=== PATIENT | female | born 2000 | race Two or more races ===

== ENCOUNTER 2020-11-30 11:20 | Observation (INO) | payer MEDICAID ==
[~2020-11-30] VITALS: Ht 167.6 cm; Wt 83.9 kg
== END 2020-11-30 13:58 | disposition home or self-care (01) ==
LOC: LDRP 11:20
PROVIDERS: ADMIT Obstetrics & Gynecology; ATTEND Obstetrics & Gynecology
DX: O26.893 Other specified pregnancy related conditions, third trimester (principal); R10.30 Lower abdominal pain, unspecified; O42.92 Full-term premature rupture of membranes, unspecified as to length of time between rupture and onset of labor; Z3A.38 38 weeks gestation of pregnancy
CPT/HCPCS: 59025; 81002; 84112; 94760; G0378; Q0114

== ENCOUNTER 2020-12-12 07:13 | Inpatient (IN) | payer MEDICAID ==
[~2020-12-12] VITALS: Ht 167.6 cm; Wt 96.2 kg
[2020-12-12] MEDS ORDERED: PHISODERM TOP SOLN 240ML BTL TOP PRN (07:30)
[2020-12-12] MEDS ORDERED: BUTORPHANOL TARTRATE 2 MG/1 ML VIAL IV PRN (07:30)
[2020-12-12] MEDS ORDERED: LACTATED RINGER'S 1,000 ML IV SCH (07:30)
[2020-12-12] MEDS ORDERED: PROMETHAZINE HCL 25 MG/ML 1ML IV PRN (07:30)
[2020-12-12] MEDS ORDERED: WITCH HAZEL-GLYCERIN PAD TOP PRN (07:30)
[2020-12-12] MEDS ORDERED: DERMOPLAST 60ML BOTTLE TOP PRN (07:30)
[2020-12-12] MEDS ORDERED: LIDOCAINE 2%HCL (LOCAL ANESTH.) INJ 20ML MDV IJ PRN (07:30)
[2020-12-12 08:13] LABS: Basophils # (auto) 0 10 ^3/uL (0-0.2); Basophils % (auto) 0.4 % (0.0-2.0); Eosinophils # (auto) 0.1 10 ^3/uL (0-0.8); Eosinophils % (auto) 0.8 % (0.0-7.0); Hematocrit 36.7 % (36.0-46.0); Hemoglobin 12.6 g/dL (12.2-16.2); Lymphocytes # (auto) 2.1 10 ^3/uL (0.4-5.4); Lymphocytes % (auto) 27.4 % (10.0-50.0); Mean Corpuscular Hemoglobin 29.8 pg (28.0-32.0); Mean Corpuscular Hgb Conc. 34.5 g/dL (32.0-36.0); Mean Corpuscular Volume 86.5 fL (80.0-100.0); Monocytes # (auto) 0.6 10 ^3/uL (0-1.3); Neutrophils # (auto) 4.9 10 ^3/uL (1.6-8.6); Neutrophils % (auto) 63.4 % (37.0-80.0); Nucleated Red Blood Cells % 0.1 %; Red Blood Cells 4.24 10^6/uL (4.0-5.20); Red Cell Distribution Width 14.5 % (11.8-14.3); White Blood Cell 7.7 10^3/uL (4.4-10.8)
[2020-12-12 08:19] LABS: Urine Amorphous Crystal MOD /hpf (None Seen); Urine Bacteria FEW /hpf (None Seen); Urine Blood 1+ /uL (Negative); Urine Hyaline Cast FEW /lpf (0 - 2); Urine Mucus FEW (None Seen); Urine Specific Gravity 1.022 (1.001-1.035); Urine WBC 9 /hpf (0 - 5)
[2020-12-12 08:26] LABS: INR 0.91 (0.9-1.15); Partial Thromboplastin Time 26.3 sec (23.0-31.2)
[2020-12-12 08:41] LABS: Albumin 2.5 g/dL (3.4-5.0); Calcium 8.7 mg/dL (8.5-10.1); Potassium 3.9 mmol/L (3.5-5.1)
[2020-12-12 08:43] LABS: Amphetamine Screen, Urine NEGATIVE (NEGATIVE); Barbiturate Scree,Urine NEGATIVE (NEGATIVE); Benzodiazephine Screen, Urine NEGATIVE (NEGATIVE); Cannabinoid Screen, Urine NEGATIVE (NEGATIVE); Cocaine Screen, Urine NEGATIVE (NEGATIVE); Opiate Scree,Urine NEGATIVE (NEGATIVE); Phencyclidine Screen, Urine NEGATIVE (NEGATIVE)
[2020-12-12 08:46] LABS: BUN/Creatinine Ratio 14.6; Bilirubin, Total 0.2 mg/dL (0.2-1.0); Total Protein 6.4 g/dL (6.4-8.2)
[2020-12-12] MEDS ORDERED: TERBUTALINE SULFATE 1 MG/ML 1ML VIAL SC ONE (09:00)
[2020-12-12] MEDS: LACT. RINGERS/OXYTOCIN 20UNITS 1,000 ML IV SCH (09:53)
[2020-12-12] MEDS ORDERED: LACT. RINGERS/OXYTOCIN 20UNITS 500 ML IV PRN ×2 (10:30)
[2020-12-12] MEDS ORDERED: ceFAZolin 1GM/50ML 50 ML IV SCH ×2 (12:00→22:00)
[2020-12-12] MEDS: BUTORPHANOL TARTRATE 2 MG/1 ML VIAL IV PRN ×2 (14:28→19:01)
[2020-12-12] MEDS ORDERED: METHYLERGONOVINE MALEATE 0.2 MG/ML AMP IM PRN (16:00)
[2020-12-12] MEDS ORDERED: CARBOPROST TROMETHAMINE 250 MCG/1ML VIAL IM PRN (16:00)
[2020-12-12] MEDS ORDERED: DIPHENOXYLATE W/ATROPINE 2.5 MG TAB PO PRN (16:00)
[2020-12-12] MEDS ORDERED: miSOPROStol 100 mcg TAB PR PRN (16:00)
[2020-12-12] MEDS ORDERED: miSOPROStol 100 mcg TAB SL PRN (16:00)
[2020-12-12 23:10] VITALS: BP 136/86
[2020-12-13] MEDS: ACETAMINOPHEN 325 MG TAB PO PRN ×2 (01:29→06:56)
[2020-12-13 03:15] VITALS: BP 123/63
[2020-12-13] MEDS: ceFAZolin 1GM/50ML 50 ML IV SCH ×3 (05:43→21:37)
[2020-12-13 07:00] VITALS: BP 120/58
[2020-12-13 07:07] LABS: RPR Non Reactive (Non Reactive)
[2020-12-13 11:04] VITALS: BP 108/53
[2020-12-13 15:07] VITALS: BP 112/55
[2020-12-13] MEDS: LACT. RINGERS/OXYTOCIN 20UNITS 1,000 ML IV SCH (18:00)
[2020-12-13 18:12] LABS: Basophils # (auto) 0 10 ^3/uL (0-0.2); Basophils % (auto) 0.3 % (0.0-2.0); Hemoglobin 11.6 g/dL (12.2-16.2); Neutrophils # (auto) 10.8 10 ^3/uL (1.6-8.6); Nucleated Red Blood Cells % 0.1 %
[2020-12-13 18:14] LABS: Eosinophils # (auto) 0 10 ^3/uL (0-0.8); Eosinophils % (auto) 0.3 % (0.0-7.0); Hematocrit 34.4 % (36.0-46.0); Lymphocytes # (auto) 2.5 10 ^3/uL (0.4-5.4); Lymphocytes % (auto) 17.2 % (10.0-50.0); Mean Corpuscular Hemoglobin 29.5 pg (28.0-32.0); Mean Corpuscular Hgb Conc. 33.7 g/dL (32.0-36.0); Mean Corpuscular Volume 87.6 fL (80.0-100.0); Monocytes # (auto) 1.3 10 ^3/uL (0-1.3); Monocytes % (auto) 8.9 % (0.0-12.0); Neutrophils % (auto) 73.3 % (37.0-80.0); Red Blood Cells 3.93 10^6/uL (4.0-5.20); Red Cell Distribution Width 14.6 % (11.8-14.3); White Blood Cell 14.7 10^3/uL (4.4-10.8)
[2020-12-13 19:22] VITALS: BP 114/70
[2020-12-13 22:11] LABS: INR 0.92 (0.9-1.15); Partial Thromboplastin Time 26.5 sec (23.0-31.2)
[2020-12-13 22:18] LABS: Albumin 2.3 g/dL (3.4-5.0); Calcium 8.4 mg/dL (8.5-10.1); Potassium 3.4 mmol/L (3.5-5.1)
[2020-12-13 22:22] LABS: Bilirubin, Total 0.1 mg/dL (0.2-1.0); Total Protein 6.3 g/dL (6.4-8.2); Uric Acid 6.5 mg/dL (2.6-6.0)
[2020-12-13 23:10] VITALS: BP 112/56
[2020-12-14] VITALS (7 sets, daily range): BP systolic 113–132; BP diastolic 58–80
[2020-12-14] MEDS: HYDROcodone-ACET 5/325MG TAB PO PRN (03:16)
[2020-12-14] MEDS ORDERED: PREN-96 OR (04:25)
[2020-12-14 06:44] LABS: Basophils # (auto) 0.1 10 ^3/uL (0-0.2); Basophils % (auto) 0.7 % (0.0-2.0); Eosinophils # (auto) 0.1 10 ^3/uL (0-0.8); Hematocrit 37.4 % (36.0-46.0); Hemoglobin 12.7 g/dL (12.2-16.2); Lymphocytes # (auto) 2.9 10 ^3/uL (0.4-5.4); Lymphocytes % (auto) 27.2 % (10.0-50.0); Mean Corpuscular Hemoglobin 29.9 pg (28.0-32.0); Mean Corpuscular Hgb Conc. 33.9 g/dL (32.0-36.0); Mean Corpuscular Volume 88.3 fL (80.0-100.0); Monocytes # (auto) 0.6 10 ^3/uL (0-1.3); Monocytes % (auto) 6.1 % (0.0-12.0); Neutrophils # (auto) 6.9 10 ^3/uL (1.6-8.6); Nucleated Red Blood Cells % 0.1 %; Red Blood Cells 4.24 10^6/uL (4.0-5.20); Red Cell Distribution Width 14.9 % (11.8-14.3); White Blood Cell 10.6 10^3/uL (4.4-10.8)
[2020-12-14 07:35] LABS: Alanine Aminotransferase 19 U/L (13-56); Albumin 2.3 g/dL (3.4-5.0); Aspartate Aminotransferase 24 U/L (15-37); BUN/Creatinine Ratio 9.6; Blood Urea Nitrogen 5 mg/dL (7-18); Calcium 8.4 mg/dL (8.5-10.1); Carbon Dioxide 27 mmol/L (21-32); GFR African American 191 mL/min; GFR Non-African American 158 mL/min; Glucose 72 mg/dL (74-106)
[2020-12-14 08:12] LABS: Anion Gap 5 (5-15); Chloride 108 mmol/L (98-107); Sodium 140 mmol/L (136-145)
[2020-12-14 08:13] LABS: Alkaline Phosphatase 112 U/L (45-117); Bilirubin, Direct < 0.1 mg/dL (0-0.2); Bilirubin, Total < 0.1 mg/dL (0.2-1.0); Total Protein 6.3 g/dL (6.4-8.2)
[2020-12-14] MEDS: ACETAMINOPHEN 325 MG TAB PO PRN ×2 (12:39→19:26)
[2020-12-15] MEDS: HYDROcodone-ACET 5/325MG TAB PO PRN (02:53)
[2020-12-15 03:00] VITALS: BP 128/84
[2020-12-15 06:48] VITALS: BP 111/71
[2020-12-15 11:30] VITALS: BP 113/72
== END 2020-12-15 14:36 | disposition home or self-care (01) | DRG 560 ==
LOC: LDRP 07:13 → OBSVTOIN 07:29
PROVIDERS: ADMIT Obstetrics & Gynecology; ATTEND Obstetrics & Gynecology
PROC: 10E0XZZ Delivery of Products of Conception, External Approach (ICD-10-PCS; principal; 2020-12-12)
PROC: 0KQM0ZZ Repair Perineum Muscle, Open Approach (ICD-10-PCS; 2020-12-12)
PROC: 0W8NXZZ Division of Female Perineum, External Approach (ICD-10-PCS; 2020-12-12)
DX: O99.12 Other diseases of the blood and blood-forming organs and certain disorders involving the immune mechanism complicating childbirth (principal); D69.6 Thrombocytopenia, unspecified; Z20.822 Contact with and (suspected) exposure to COVID-19; Z37.0 Single live birth; Z3A.39 39 weeks gestation of pregnancy; O70.1 Second degree perineal laceration during delivery; R16.1 Splenomegaly, not elsewhere classified; E87.5 Hyperkalemia; O99.284 Endocrine, nutritional and metabolic diseases complicating childbirth
CPT/HCPCS: 36415; 59025; 59409; 76700; 80053; 80076; 80307; 81001; 81002; 83615; 84550; 85025; 85362; 85379; 85610; 85730; 86592; 86850; 86900; 86901; 86920; 87426; 93970; 94760; 96360; 96361; 96365; 96366; 96372; 96374; 96375; G0378; J0690; J2590

== ENCOUNTER 2022-01-28 18:50 | Observation (INO) | payer MEDICAID ==
[~2022-01-28] VITALS: Ht 165.1 cm; Wt 95.7 kg
[~2022-01-28 18:50] MED LIST: PREN-96 OR
== END 2022-01-28 21:55 | disposition home or self-care (01) ==
LOC: ER 18:54 → LDRP 20:06
PROVIDERS: ADMIT Obstetrics & Gynecology Obstetrics; ATTEND Obstetrics & Gynecology Obstetrics
DX: O26.893 Other specified pregnancy related conditions, third trimester (principal); R10.30 Lower abdominal pain, unspecified; R10.2 Pelvic and perineal pain; Z3A.32 32 weeks gestation of pregnancy
CPT/HCPCS: 59025; 81002; G0378

== ENCOUNTER 2022-03-22 12:40 | Observation (INO) | payer MEDICAID | END 2022-03-22 14:20 | disposition home or self-care (01) | LOC: LDRP 12:40 → UNDOADMOB 12:40 → LDRP 12:50 | PROVIDERS: ADMIT Obstetrics & Gynecology; ATTEND Obstetrics & Gynecology | DX: O62.9 Abnormality of forces of labor, unspecified (principal); O46.93 Antepartum hemorrhage, unspecified, third trimester; O26.893 Other specified pregnancy related conditions, third trimester; N89.8 Other specified noninflammatory disorders of vagina; Z3A.39 39 weeks gestation of pregnancy | CPT/HCPCS: 59025; 81002; 94760; G0378 ==

== ENCOUNTER 2022-03-24 09:55 | Inpatient (IN) | payer MEDICAID ==
[~2022-03-24] VITALS: Ht 167.6 cm; Wt 99.3 kg
[2022-03-24] MEDS ORDERED: PHISODERM TOP SOLN 240ML BTL TOP PRN (12:00)
[2022-03-24] MEDS ORDERED: PROMETHAZINE HCL 25 MG/ML 1ML IV PRN (12:00)
[2022-03-24] MEDS ORDERED: WITCH HAZEL-GLYCERIN PAD TOP PRN (12:00)
[2022-03-24] MEDS ORDERED: LIDOCAINE 2%HCL (LOCAL ANESTH.) INJ 10ml MDV IJ PRN (12:00)
[2022-03-24] MEDS ORDERED: BUTORPHANOL TARTRATE 2 MG/1 ML VIAL IV PRN ×2 (12:00)
[2022-03-24] MEDS ORDERED: DERMOPLAST 60ML BOTTLE TOP PRN (12:00)
[2022-03-24 12:01] LABS: Urine Bacteria NONE SEEN /hpf (None Seen); Urine Blood Negative /uL (Negative); Urine Specific Gravity 1.017 (1.001-1.035); Urine WBC 14 /hpf (0 - 5)
[2022-03-24 12:19] LABS: Basophils # (auto) 0 10 ^3/uL (0-0.2); Basophils % (auto) 0.5 % (0.0-2.0); Eosinophils # (auto) 0.1 10 ^3/uL (0-0.8); Eosinophils % (auto) 0.6 % (0.0-7.0); Hematocrit 37.8 % (36.0-46.0); Hemoglobin 12.6 g/dL (12.2-16.2); Lymphocytes # (auto) 1.4 10 ^3/uL (0.4-5.4); Lymphocytes % (auto) 15.1 % (10.0-50.0); Mean Corpuscular Hemoglobin 28.7 pg (28.0-32.0); Mean Corpuscular Hgb Conc. 33.3 g/dL (32.0-36.0); Mean Corpuscular Volume 86.1 fL (80.0-100.0); Monocytes # (auto) 0.6 10 ^3/uL (0-1.3); Monocytes % (auto) 6.5 % (0.0-12.0); Neutrophils % (auto) 77.3 % (37.0-80.0); Nucleated Red Blood Cells % 0.1 %; Red Blood Cells 4.39 10^6/uL (4.0-5.20); Red Cell Distribution Width 14.6 % (11.8-14.3)
[2022-03-24 12:21] LABS: Alcohol, Urine < 3.0 mg/dL (0-10); Amphetamine Screen, Urine NEGATIVE (NEGATIVE); Barbiturate Scree,Urine NEGATIVE (NEGATIVE); Benzodiazephine Screen, Urine NEGATIVE (NEGATIVE); Cannabinoid Screen, Urine NEGATIVE (NEGATIVE); Cocaine Screen, Urine NEGATIVE (NEGATIVE); Opiate Scree,Urine NEGATIVE (NEGATIVE); Phencyclidine Screen, Urine NEGATIVE (NEGATIVE)
[2022-03-24 12:34] LABS: INR 0.89 (0.9-1.15); Partial Thromboplastin Time 25.1 sec (24.6-33.4)
[2022-03-24 12:39] LABS: Albumin 2.6 g/dL (3.4-5.0); Calcium 8.8 mg/dL (8.5-10.1); Potassium 4.1 mmol/L (3.5-5.1)
[2022-03-24 12:42] LABS: BUN/Creatinine Ratio 12.5; Bilirubin, Total 0.1 mg/dL (0.2-1.0); Total Protein 6.6 g/dL (6.4-8.2)
[2022-03-24] MEDS ORDERED: LACT. RINGERS/OXYTOCIN 20UNITS 500 ML IV ONE ×2 (12:45→13:15)
[2022-03-24] MEDS ORDERED: TERBUTALINE SULFATE 1 MG/ML 1ML VIAL SC PRN (12:45)
[2022-03-24] MEDS ORDERED: LACT. RINGERS/OXYTOCIN 20UNITS 1,000 ML IV SCH (12:45)
[2022-03-24] MEDS: LACTATED RINGER'S 1,000 ML IV SCH ×2 (13:03→13:06)
[2022-03-24] MEDS ORDERED: ROPIVACAINE HCL 200 ML EPI SCH ×2 (16:15→17:00)
[2022-03-24] MEDS ORDERED: LIDOCAINE HCL 2 %PF INJ 10ML AMP IJ ONE (16:15)
[2022-03-24] MEDS ORDERED: ePHEDrine SULFATE 50 MG/ML AMP IV ONE (16:15)
[2022-03-24] MEDS ORDERED: miSOPROStol 100 mcg TAB SL PRN (16:30)
[2022-03-24] MEDS ORDERED: miSOPROStol 100 mcg TAB PR PRN (16:30)
[2022-03-24] MEDS ORDERED: METHYLERGONOVINE MALEATE 0.2 MG/ML AMP IM ONE (16:30)
[2022-03-24] MEDS ORDERED: Lidocaine W-Epinephrine 1.5%-1:200,000 INJ 10ml Vial ONE (17:12)
[2022-03-24] MEDS ORDERED: LIDOCAINE 2%HCL (LOCAL ANESTH.) INJ 20ML MDV ONE (17:50)
[2022-03-24] MEDS ORDERED: IBUPROFEN 600 MG TAB PO PRN (18:45)
[2022-03-24] MEDS: ACETAMINOPHEN 325 MG TAB PO PRN (19:14)
[2022-03-24 20:00] VITALS: BP 119/61
[2022-03-24 20:36] VITALS: BP 133/75
[2022-03-24 21:15] VITALS: BP 131/96
[2022-03-24 22:30] VITALS: BP 137/75
[2022-03-25 02:30] VITALS: BP 108/72
[2022-03-25 05:30] VITALS: BP 124/74
[2022-03-25 06:40] VITALS: BP 119/55
[2022-03-25 11:00] VITALS: BP 122/74
[2022-03-25] MEDS: ACETAMINOPHEN 325 MG TAB PO PRN (12:05)
[2022-03-25 15:05] VITALS: BP 119/68
[2022-03-25 19:00] VITALS: BP 121/66
[2022-03-26 06:06] LABS: RPR Non Reactive (Non Reactive)
[2022-03-26 07:06] LABS: Rubella Antibodies, IgG 2.46 index (Immune >0.99)
== END 2022-03-25 20:18 | disposition home or self-care (01) | DRG 560 ==
LOC: LDRP 09:55 → OBSVTOIN 11:40 → LDRP 23:25
PROVIDERS: ADMIT Obstetrics & Gynecology; ATTEND Obstetrics & Gynecology
PROC: 10E0XZZ Delivery of Products of Conception, External Approach (ICD-10-PCS; principal; 2022-03-24)
PROC: 3E0R3BZ Introduction of Anesthetic Agent into Spinal Canal, Percutaneous Approach (ICD-10-PCS; 2022-03-24)
PROC: 00HU33Z Insertion of Infusion Device into Spinal Canal, Percutaneous Approach (ICD-10-PCS; 2022-03-24)
PROC: 0HQ9XZZ Repair Perineum Skin, External Approach (ICD-10-PCS; 2022-03-24)
DX: O99.214 Obesity complicating childbirth (principal); Z37.0 Single live birth; E66.01 Morbid (severe) obesity due to excess calories; O70.0 First degree perineal laceration during delivery; Z3A.39 39 weeks gestation of pregnancy
CPT/HCPCS: 36415; 59025; 59409; 62282; 80053; 80307; 81001; 81002; 84112; 85025; 85610; 85730; 86592; 86762; 86850; 86900; 86901; 87426; 94760; 94762; 96360; 96361; 96365; 96366; 96372; G0378; J2590